=== PATIENT | female | born 1990 | race Caucasian/White ===

== ENCOUNTER 2021-11-20 14:27 | Outpatient (CLI) | payer BC, SELFPAY ==
[2021-11-20 18:13] LABS: Ferritin* 33.7 ng/mL (6.24-137.0)
== END 2021-11-20 14:28 | disposition home or self-care (01) ==
LOC: NFLDREF 14:28
PROVIDERS: Visit Provider Physician Assistant
DX: O99.350 Diseases of the nervous system complicating pregnancy, unspecified trimester (principal); G25.81 Restless legs syndrome; Z3A.16 16 weeks gestation of pregnancy
CPT/HCPCS: 82728

== ENCOUNTER 2021-12-12 12:11 | Outpatient (CLI) | payer BC, SELFPAY ==
--- NOTE | 2021-12-12 12:15 | CRLHL7_ITS ---
For Patients: As a result of the Century Cures Act, medical imaging exams and procedure reports are released immediately into your electronic medical record. You may view this report before your referring provider. If you have questions, please contact your health care provider. INDICATION: Evaluate anatomy. COMPARISON: none TECHNIQUE: Real time barrow scale imaging of the fetus was performed as well as color Doppler analysis of the umbilical vessels. FINDINGS: Sonographic imaging demonstrates a single living intrauterine gestation. Fetus demonstrates a regular cardiac rate of 148 beats per minute. Fetus has a vertex position. The placenta lies anterior. The edge of the placenta is located 7.5 cm from the internal cervical os. Circumvallate placenta is present. See image 48/53. Amniotic fluid volume appears normal. Single deepest vertical pocket: 6.8 cm. The cervix is closed and measures 4.2 cm in length. The composite ultrasound gestational age is calculated at 19 weeks 3 days with an estimated sonographic due date of 05/05/2022. The estimated weight is 290 grams which lies at the 28th %. The following biometric measurements were obtained: Biparietal diameter: 4.6 cm/19 weeks 5 days 52nd% Head circumference: 16.6 cm/19 weeks 2 days 24th% Abdominal circumference: 14.6 cm/19 week 6 days 52nd% Femur length: 2.9 cm/18 weeks 5 days 13th% The HC/AC ratio measures: 1.14 range (1.08-1.26) On anatomic survey, there is a normal appearance of the cerebral ventricles, cavum septi pellucidi, cisterna magna and cerebellum. The nose, lips, and facial profile appear normal. The cervical, thoracic and lumbar spine are well visualized and appear normal. There is a normal four-chamber heart view and the left and right ventricular outflow tracts appear normal. The diaphragm and stomach appear normal. The kidneys and bladder also appear normal. There is a normal three-vessel cord and cord insertion site. The four extremities appear normal. IMPRESSION: Concordance of clinical and sonographic dating. No intrinsic abnormalities noted on anatomic survey. Circumvallate placenta. Dictated by Andrey Nobles MD @ 12/13/2021 10:23:12 AM (Electronically Signed)
== END 2021-12-12 12:12 | disposition home or self-care (01) ==
PROVIDERS: PCP Physician Assistant; Visit Provider Physician Assistant
DX: Z34.92 Encounter for supervision of normal pregnancy, unspecified, second trimester (principal); Z3A.19 19 weeks gestation of pregnancy
CPT/HCPCS: 76805

== ENCOUNTER 2022-02-06 16:33 | Outpatient (CLI) | payer BC, SELFPAY ==
[2022-02-09 00:58] LABS: Rapid Plasma Reagin (RPR) Non Reactive (Non Reactive)
== END 2022-02-06 16:34 | disposition home or self-care (01) ==
PROVIDERS: PCP Physician Assistant; Visit Provider Obstetrics & Gynecology
DX: Z34.90 Encounter for supervision of normal pregnancy, unspecified, unspecified trimester (principal)
CPT/HCPCS: 86592

== ENCOUNTER 2022-03-07 13:58 | Outpatient (CLI) | payer BC, SELFPAY ==
--- NOTE | 2022-03-07 14:00 | CRLHL7_ITS ---
For Patients: As a result of the Century Cures Act, medical imaging exams and procedure reports are released immediately into your electronic medical record. You may view this report before your referring provider. If you have questions, please contact your health care provider. INDICATION: Third trimester scan, evaluate growth. COMPARISON: 12/12/2021 TECHNIQUE: Real time barrow scale imaging of the fetus was performed. FINDINGS: Sonographic imaging demonstrates a single living intrauterine gestation. Fetus demonstrates a regular cardiac rate of 127 beats per minute. Fetus has a vertex position. The placenta lies anteriorly. Amniotic fluid volume appears normal and there is a single deepest vertical pocket: 4.6 cm. The estimated weight is 1655gm which lies at the 14th %. On the prior OB ultrasound exam dated 12/12/2021 the estimated weight was at the 28th%. BPD 15th percentile. HC 17th percentile. AC 37th percentile. FL less than 3rd percentile. The HC/AC ratio measures 1.06 range (0.96-1.17). IMPRESSION: Sonographic gestational age 31 weeks 0 days and sonographic due date 05/09/2022. Sonographic age is 6 days behind the clinical age. Estimated weight 14th percentile. Abdominal circumference 37th percentile. Placenta is anterior without previa. Femur length less than 3rd percentile. Dictated by Andrey Nobles MD @ 03/07/2022 3:04:05 PM (Electronically Signed)
== END 2022-03-07 13:59 | disposition home or self-care (01) ==
LOC: US 13:58
PROVIDERS: PCP Physician Assistant; Visit Provider Advanced Practice Midwife
DX: O43.119 Circumvallate placenta, unspecified trimester (principal); Z3A.31 31 weeks gestation of pregnancy
CPT/HCPCS: 76816

== ENCOUNTER 2022-04-04 12:59 | Outpatient (CLI) | payer BC, SELFPAY ==
--- NOTE | 2022-04-04 13:00 | CRLHL7_ITS ---
For Patients: As a result of the Cures Act, medical imaging exams and procedure reports are released immediately into your electronic medical record. You may view this report before your referring provider. If you have questions, please contact your health care provider. INDICATION: f/u growth and circumvallate placenta COMPARISON: 03.07.22 TECHNIQUE: Real time barrow scale imaging of the fetus was performed. FINDINGS: Sonographic imaging demonstrates a single living intrauterine gestation. Fetus demonstrates a regular cardiac rate of 143 beats per minute. Fetus has a vertex position. The placenta lies anteriorly without evidence of circumvallate placenta on today`s study. Amniotic fluid volume appears normal and there is a single deepest vertical pocket: 5.0 cm. The estimated weight is 2377gm which lies at the 13th %. On the prior OB ultrasound exam dated 03/07/2022 the estimated weight was at the 14th%. BPD 16th percentile. HC 22nd percentile. AC 27th percentile. FL less than 3rd percentile. The HC/AC ratio measures 1.04 range (0.94-1.11). IMPRESSION: Sonographic gestational age 34 weeks 3 days and sonographic due date of 05/13/2022. Sonographic age is 10 days behind the clinical age. Estimated weight 13th percentile. Abdominal circumference 27th percentile. Dictated by Andrey Nobles MD @ 04/05/2022 10:13:00 AM (Electronically Signed)
== END 2022-04-04 13:00 | disposition home or self-care (01) ==
LOC: US 13:00
PROVIDERS: PCP Physician Assistant; Visit Provider Physician Assistant
DX: O43.113 Circumvallate placenta, third trimester (principal); Z3A.34 34 weeks gestation of pregnancy
CPT/HCPCS: 76816; 87081; 87653

== ENCOUNTER 2022-05-10 14:40 | Inpatient (IN) | payer BC, SELFPAY ==
[2022-05-10] VITALS (29 sets, daily range): BP systolic 89–135; BP diastolic 50–73; PULSE 60–82; RESP 16–18; TEMP 36.4–37; O2SAT 97–100; BMI 28.5
--- NOTE | 2022-05-10 15:20 | P.LDBA_ITS ---
Subjective History of Present Illness Time Seen by Provider: 15:20 Date Seen: 05/10/22 Narrative: Patient is being admitted to Labor and Delivery for IUGR and oligohydramnios . She is a 31 year old at 41.0 weeks gestation. Her full history and physical was dictated by Tracie Ramos on 04/15/22. Please see this for details. She presented today for an ultrasound for her 41 week check. The u/s notred EFW 4%, SDP 2.3 but JOSH 4.7. BPP was 8/8. She states she has been having ctx since yesterday. They occurred all day yesterday, becoming more intense around 6pm. She was able to get some sleep, but the ctx have continued into today. . ITA: 05/08/21 by LMP c/w 1st trimester USN Spouse: Darren Eagle. Daughter: Miguel Miles. Baby: Girl! H&P completed 04/15/22 by Tracie Ramirez SNM with Fatuma Ramos CNM 1. Transfer OB at 16 weeks 4 days 2. H/o recurrent UTIs 3. Restless legs syndrome * Ferritin: 33.7, per up-to-date, recommendation is to supplement if ferritin is less than 75 * Ferrous sulfate 325 4. Circumvallate placenta * USN for EFW at 32 weeks (scheduled) * Very anxious about baby's w/ circumvallate placenta having IUGR, delivery and/or and [facility] not having an ICU * Will tx care to a tertiary care center if evidence of growth restriction at her 32 week USN. * EFW at 20wk FAS: 28% * EFW at 32 weeks: 14%. BPD 15%, HC 17%, AC 37%, FL <3%. SDP 4.6 cm * EFW at 36 weeks: 13%. BPD 18%, HC 23%, AC 27%, FL <3%. SDP 5.0 cm * Follow up growth ordered for 40 weeks, pt prefers to schedule May 06 5. Measuring small for dates - growth ordered Flu shot:Declined 12/12/2021 Covid vaccine: not vaccinated. Discussed recommendations and risks at transfer ob appt. Tdap: declines labs 09/26/2021: O positive, negative antibody screen, h hemoglobin 13.1, platelets 204, rubella immune, RPR negative, hepatitis-B surface antigen negative, HIV negative, gonorrhea and Chlamydia negative, UC: No growth. TSH 0.453 Hep C: neg (found in transfer records 04/15) Imaging 09/26/2021: [employer]-rump length 16.6 mm. heart rate 164. ITA 05/08/2022. Consistent with LMP dating, 05/03/2022. OB - Problem Based A/P Additional Plan (1) IUGR (intrauterine growth restriction): Status: Acute (2) Oligohydramnios: Status: Acute (3) Uterine contractions: Status: Acute Plan at 41.0 weeks GBS negative Oligohydramnios IUGR Possible early labor 1. Admit to L & D for IOL, likely pitocin. Did review option to wait an hour or two to see if labor was progressing 2. Continuous monitoring 3. Canidate for analgesia of choice. Planning unmedicated 4. Desires waterbirth, unable to do so r/t IUGR 5. Dr. Nassar assuming care per pt request 6. Anticipate progress to NVD OB Exam Physical Exam Vital signs: Pulse BP 71 116/73 05/10/22 15:09 05/10/22 15:09 Narrative: VSS, afebrile General Appearance:? Calm, cooperative. ?No acute distress. ? Psychiatric Exam: Alert and oriented, appropriate affect Lungs: CTA Cardiac: RRR Abdomen: Gravid Ctx: ?Q 5-7 min apart. ?Mild -?Moderate ? FHTs: ?Baseline: 115 ? ? Variability: min - mod ? Accels: present ? ?Decels: ?none SVE: /-2 Membranes: Intact ?
[2022-05-10 18:15] LABS: SARS PCR* Negative SARS-CoV-2 (Negative)
--- NOTE | 2022-05-10 19:13 | PM.OBPNL ---
Subjective Time Seen by Provider: 18:00 Date Seen: 05/10/22 Narrative: Shauna has been johnny spontaneously since admission. She is ambulating. Contractions are feeling stronger. Objective Vital Signs: Last Vital Signs Temp 98.4 F 05/10/22 15:00 Pulse 71 05/10/22 15:09 Resp 16 05/10/22 15:00 BP 116/73 05/10/22 15:09 Pulse Ox 97 05/10/22 16:25 Comments: tracing: BAseline 110 / accels present / no decels / moderate variability. Pelvic Exam Dilation (cm): 4 Effacement (%): 90 Station: +2 Comments: cervix anterior and soft. *Very* low. Contractions Contraction pattern: Regular Assessment Assessment: prodromal labor Station: +2 Status: Category l Tracing Comments: Reasurring status. Labor Progress: Latent labor. Progress since last exam in dilation and station. Plan Plan: Repeat exam in two hours. I favor AROM or pitocin if no change at that time.
[2022-05-10] MEDS: OXYTOCIN 30 unit/500 ML in NS 30 UNIT/500 ML BAG IVPB (20:35)
[2022-05-10 20:41] LABS: Basophils Percent Auto 0.1 % (0.0-3.0); Eosinophils Percent Auto 0.3 % (0.0-7.0); Hematocrit 36.5 % (33.0-51.0); Hemoglobin* 12.5 gm/dL (12.0-16.0); Immature Granulocytes Pct Auto 0.3 %; Lymphocytes Percent Auto 11.7 % (20-44); Mean Corpuscular HGB Conc 34 gm/dL (32-36); Mean Corpuscular Hemoglobin 32 pg (26-34); Mean Corpuscular Volume 93 fL (80-100); Monocytes Percent Auto 6.6 % (0.0-11.0); Platelet Count* 155 K/uL (140-440); RDW Coefficient of Variation % 13.6 % (11.5-15.5); Red Blood Count 3.91 m/uL (4.00-5.20); White Blood Count* 11.45 K/uL (4.50-11.00)
[2022-05-10 20:50] LABS: Slide Review Reflex No
[2022-05-10] MEDS: ONDANSETRON 2 MG/ML inj 4 MG IV (20:58)
[2022-05-10] MEDS: LACTATED RINGERS 1000 ML 1,000 ML 925 ML IV (21:00)
[2022-05-10] MEDS: ROPIVACAINE 0.2% 100 ml 100 ML 10 MG EPIDURAL (21:39)
[2022-05-10] MEDS: LIDOCAINE 2% (PF) 5 ML VIAL EPIDURAL (21:39)
--- NOTE | 2022-05-10 21:42 | P.ANBPRC_ITS ---
[facility] Medical History (Updated 05/10/22 @ 17:11 by Carol Ma CNM) History of recurrent UTIs Surgical History H/O wisdom tooth extraction Family History Maternal Grandfather Breast cancer Mother Thyroid disease Osteoporosis Social History Narrative: . 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 Smoking Status: Never smoker Little interest or pleasure in doing things: not at all Feeling down, depressed, or hopeless: not at all Meds Home Medications and Allergies Home Medications Medication Instructions Recorded Confirmed Type docosahexaenoic acid 200 mg 200 mg PO DAILY 11/20/21 05/10/22 History capsule ( DHA) magnesium 30 mg tablet 225 mg PO QDAY 11/20/21 05/10/22 History cholecalciferol (vitamin D3) 25 25 mcg PO QDAY 04/15/22 05/10/22 History mcg (1,000 unit) capsule Allergies Allergy/AdvReac Type Severity Reaction Status Date / Time No Known Drug Allergies Allergy Verified 05/06/22 13:02 Results Labs Labs: Laboratory Results - last 24 hr 05/10/22 05/10/22 16:53 20:32 WBC 11.45 H RBC 3.91 L Hgb 12.5 Hct 36.5 MCV 93 MCH 32 MCHC 34 RDW Coeff of Jennie 13.6 Plt Count 155 Neut % (Auto) 81.0 H Lymph % (Auto) 11.7 L [place] % (Auto) 6.6 Eos % (Auto) 0.3 Baso % (Auto) 0.1 Neut # (Auto) 9.30 H Lymph # (Auto) 1.30 [place] # (Auto) 0.80 Eos # (Auto) 0.00 Baso # (Auto) 0.00 SARS-CoV-2 (PCR) Negative SARS-CoV-2 Vital Signs Vital Signs: Last Vital Signs Temp 97.5 F L 05/10/22 19:44 Pulse 60 05/10/22 21:42 Resp 16 05/10/22 19:44 BP 89/52 L 05/10/22 21:42 Pulse Ox 100 05/10/22 21:31 Weight: 70.715 kg Height: 157.48 cm Anesthesia Procedures Epidural Insertion Patient Location: OB Start Time: 21:15 Stop Time: 21:45 Start Date: 05/10/22 Stop Date: 05/10/22 Reason for Block: primary anesthetic Patient Position: sitting Performed By: Jarod Gabriel Preanesthetic Checklist: IV checked, risks and benefits discussed, surgical consent, monitors and equipment checked, pre-op evaluation, timeout performed and anesthesia consent Prep: chlorhexidine gluconate Monitoring: blood pressure monitoring, cardiac exercise physiologist, continuous pulse oxim etry and heart rate Approach: midline Vertebral Space: lumbar (1-5) Epidural Technique: KIMBERLY saline Needle Type: Tuohy needle Injection Technique: continuous catheter (catheter) Needle gauge: 17 Needle Length (cm): 10 cm Needle Insertion Depth (cm): 5 Catheter Gauge: 19 Catheter Type: multi-orifice Catheter at skin depth (cm): 10 Test Dose Result: negative and lidocaine 1.5% with epinephrine 1 to 200,000
[2022-05-10] MEDS: LACTATED RINGERS 1000 ML 1,000 ML 125 ML IV (22:06)
[2022-05-11] VITALS (13 sets, daily range): BP systolic 94–128; BP diastolic 51–71; PULSE 59–97; RESP 16; TEMP 36.4–37.1; O2SAT 94–97
--- NOTE | 2022-05-11 00:10 | W.PM.VAGDEL1 ---
Procedure Delivery date: 05/10/22 Procedure Done: [employer] Procedure Details: The patient is a 31 year-old G 2 P 1-0-0-1 woman admitted on 05/10/2022 at 41 Weeks, 0 Days gestation for induction of labor for suspected intrauterine growth restriction and oligohydramnios.? Cervical exam on admission was 3 cm/90 % effaced/-2 station with membranes intact in vertex presentation.? Contractions were roughly every 5 minutes.? heart rate demonstrated baseline 110 bpm with moderate variability, positive accelerations, now decelerations; a category 1 tracing.? Labor onset:? 3:00 p.m. She had Pitocin for augmentation of labor. While she was johnny regularly, contractions became less frequent, every 6 minute at time of initiation of Pitocin. ? Labor Analgesia:? Epidural ? SROM occurred at 11:15 p.m. with clear fluid. ? Complete:? 11:37 p.m. ? Pushing:? 11:40 p.m. ? heart tones during second stage were reassuring. ? At 11:48 p.m. a viable female delivered in vertex OA presentation over small second-degree perineal laceration via spontaneous vaginal delivery.? was placed on maternal abdomen.? Cord was clamped and cut after a delay of greater than 60 seconds. Nose and mouth were bulb suctioned.? Infant weight pending.? 8 at 1 minute and 9 at 5 minutes.? Shoulder dystocia: No.? Nuchal cord: Now. ? Placenta delivered spontaneously and complete at 11:55 p.m. with a 3 vessel cord. ? Mother and infant were stable after delivery. ? Lacerations:? Small second-degree perineal laceration, repaired with 3 interrupted sutures of 3-0 Vicryl. ? Blood loss: 200 mL. Blood loss measurement type: EBL ? Sponge and needles counts are correct.
[2022-05-11] MEDS: IBUPROFEN 600 MG TABLET PO ×4 (04:03→23:55)
--- NOTE | 2022-05-11 10:44 | PM.OBPNVD1 ---
OB - PN:Subj Subjective Time Seen by Provider: 10:44 Date Seen: 05/11/22 Interval history: Overnight patient had complains of fatigue. Her pain is well controlled on oral pain medications. She is tolerating a regular diet. She is ambulating without difficulty. Lochia is scant. She is urinating without lopez. Patient denies chest pain, SOB, n/v, headache, RUQ pain, vision changes, dizziness. She state that overall her delivery was fine, just endorses intense pain at the end and wondered if her epidural was working at that point. I discussed with her that unfortunately, having pain while even with an epidural is normal. Her delivery was uncomplicated. OB - PN: Obj Exam Physical Exam: Vital signs: Temp Pulse Resp BP Pulse Ox O2 Del Method 97.9 F 63 16 98/56 L 96 05/11/22 09:20 05/11/22 09:20 05/11/22 09:20 05/11/22 09:20 05/11/22 09:20 05/11/22 09:20 Narrative: Physical exam: General: No acute distress Psych: Alert and oriented x3, full affect HEENT: Normocephalic, atraumatic Heart: Regular rate and rhythm, no murmur rub or gallop Lungs: Clear to auscultation bilaterally Abdomen: Soft, no tenderness, rebound, or guarding Skin: No lesions or rashes Lower extremities: No edema or erythema Pelvic exam: Light lochia on pad OB - PN: Obj Data Labs Labs: Laboratory Results - last 24 hr 05/10/22 05/10/22 05/10/22 16:53 20:32 20:32 WBC 11.45 H RBC 3.91 L Hgb 12.5 Hct 36.5 MCV 93 MCH 32 MCHC 34 RDW Coeff of Jennie 13.6 Plt Count 155 Neut % (Auto) 81.0 H Lymph % (Auto) 11.7 L Reagan % (Auto) 6.6 Eos % (Auto) 0.3 Baso % (Auto) 0.1 Neut # (Auto) 9.30 H Lymph # (Auto) 1.30 Reagan # (Auto) 0.80 Eos # (Auto) 0.00 Baso # (Auto) 0.00 SARS-CoV-2 (PCR) Negative SARS-CoV-2 Blood Type O Positive Antibody Screen NEGATIVE OB - PN: A/P Vaginal Delivery Assessment and Plan (1) IUGR (intrauterine growth restriction): Status: Inactive (2) Oligohydramnios: Status: Inactive (3) Uterine contractions: Status: Resolved Plan Comments: Postoperative Review: - Admitted for: IOL due to FGR and oligohydramnios at 41 weeks - Laceration: 2nd degree - Estimated blood loss: 200 mL - Complications: none - Urine output: Voiding freely Postoperative care: - Diet: Advance as tolerated - Fluid: Encourage oral intake - Activity: Encourage ambulation - Pain: Tylenol and Ibuprofen Discharge Planning - Follow Up: follow-up in 2 and 6 weeks in clinic Baby's Status - Fetus: 8, 9 - Weight: 7lb 5.11 oz - Location: Bedside Dispo: Patient is PPD#1.
[2022-05-12 07:23] LABS: Hemoglobin* 11.4 gm/dL (12.0-16.0)
[2022-05-12 07:26] VITALS: BP 96/51; PULSE 66; RESP 16; TEMP 36.5; O2SAT 97
[2022-05-12] MEDS: IBUPROFEN 600 MG TABLET PO (07:46)
--- NOTE | 2022-05-12 09:32 | P.DS_ITS ---
DS: Providers Provider Time Seen by Provider: 09:32 Date Seen: 05/12/22 Date of admission: 05/10/22 14:40 Primary care physician: Sara South PA-C Admitting Clinician: Nancy Nassar MD Attending Physician on discharge: Nancy Nassar MD Date of Discharge: 05/12/22 DS: Diagnosis Discharge Diagnosis (1) Normal spontaneous vaginal delivery: Status: Acute Exam Narrative: Exam Narrative: Physical exam: General: No acute distress Psych: Alert and oriented x3, full affect HEENT: Normocephalic, atraumatic Heart: Regular rate and rhythm, no murmur rub or gallop Lungs: Clear to auscultation bilaterally Abdomen: Normoactive bowel sounds. Uterus firm 3-4 cm below umbilicus, soft, no tenderness, rebound, or guarding, no masses Lower extremities: No edema or erythema Pelvic exam: Deferred. Patient report scant lochia Const: Vital Signs, click to edit/add: Vital Signs - 24 hr 05/11/22 11:49 05/11/22 16:15 05/11/22 20:19 Temperature 97.9 F 97.7 F 97.5 F L Pulse Rate [Pulse Oximeter] 84 85 66 Respiratory Rate 16 16 16 Blood Pressure [Ri ght Arm] 104/68 106/70 128/71 Pulse Oximetry 97 96 Oxygen Delivery Me thod Room Air Room Air Room Air 05/11/22 23:45 05/12/22 07:26 Temperature 98.3 F 97.7 F Pulse Rate [Pulse Oximeter] 59 L 66 Respiratory Rate 16 16 Blood Pressure [Ri ght Arm] 97/60 96/51 L Pulse Oximetry 94 97 Oxygen Delivery Me thod Room Air Room Air OB - DS: Summary Hospital Course Hospital Course: The patient is a 31 year old G 2 P 1001 at 41 weeks gestation that was admitted to the Center on 05/10/22 for induction of labor due to suspected growth restriction and oligohydramnios. She had an uncomplicated vaginal delivery. She delivered a viable female infant. She is breast feeding. the patient has done well. She desires discharge TASHIA. Discussed patient's baseline low blood pressure. She is asymptomatic and her BP is generally on the lower side at baseline. Her hgb is 11.4. Patient denies fever, chills, chest pain, SOB, n/v, headache, vision changes, RUQ pain, or dizziness. Stable and appropriate for discharge. Time spent discussing smoking cessation with patient: 3 to 10 minutes Infant Gender: Female Time Spent with Patient Time attestation: Total time spent providing and/or coordinating discharge services: Discharge Plan Discharge Disposition: Home, Self-Care Date of Admission: 05/10/22 14:40 Attending Provider on Discharge: Mayela Burgess MD Primary Care Provider: Sara South Condition: Stable Anticipated Discharge Date/Time: 05/12/22 09:29 Discharge Medications: New acetaminophen 500 mg Tablet 1,000 mg PO Q6H PRN30 Days Qty: 30 0RF docusate sodium 100 mg Capsule 100 mg PO DAILY 30 Days Qty: 30 0RF ibuprofen 600 mg Tablet 600 mg PO Q6H PRN30 Days Qty: 30 0RF simethicone 80 mg Tablet,Chewable 80 - 160 mg PO Q4H PRN (Reason: gas) 30 Days Qty: 30 0RF Lanolin (HPA) 100 % Cream 1 applic topical Q1H PRNQty: 10 0RF Continued DHA 200 mg capsule 200 mg PO DAILY cholecalciferol (vitamin D3) 25 mcg (1,000 unit) capsule 25 mcg PO QDAY ferrous sulfate 325 mg (65 mg iron) tablet 325 mg PO QDAY Qty: 90 3RF Discontinued magnesium 30 mg tablet 225 mg PO QDAY Discharge Orders: Discharge Order (Routine); Ordered 05/12/22 Ordered By: Mayela Burgess Patient Education: Caring for Your Baby (DC), Vaginal Delivery (DC) Follow Up Appointments: Sara South PA-C [Primary Care Provider] - Forms: Posterous Info Instructions
== END 2022-05-12 13:40 | disposition home or self-care (01) | DRG 560 ==
LOC: OB OUT 05-11 08:03 → OB 05-11 08:03
PROVIDERS: Admitting Provider Obstetrics & Gynecology; PCP Physician Assistant; Visit Provider Obstetrics & Gynecology
DX: O41.03X0 Oligohydramnios, third trimester, not applicable or unspecified (principal); O36.5930 Maternal care for other known or suspected poor fetal growth, third trimester, not applicable or unspecified; O70.1 Second degree perineal laceration during delivery; G25.81 Restless legs syndrome; Z3A.41 41 weeks gestation of pregnancy; Z37.0 Single live birth
CPT/HCPCS: 01967; 36415; 76816; 76819; 76820; 85018; 85025; 86850; 86900; 86901; 87635; 88307; 99213; A9270; J2370; J2405; J2795; J7120

== ENCOUNTER 2022-05-17 14:36 | Outpatient (CLI) | payer BC, SELFPAY ==
--- NOTE | 2022-06-07 13:56 | W.PM.LAC.MC ---
Consult Note - Mom Date of Visit Date of visit: 05/17/22 hearing consultant: Mago Cardona Visit Code: Visit Patient's Information Phone number: [phone] : 2 Para: 2 Allergies No Known Drug Allergies Allergy (Verified 05/06/22 13:02) Mother's Medical History: Medical History (Updated 05/11/22 @ 00:07 by Nancy Nassar MD) IUGR (intrauterine growth restriction) Oligohydramnios ?O41.00X0 - Oligohydramnios, unspecified trimester, not applicable or unspecified (ICD-10) Delivery Information Delivery type: Vaginal (oligohydramnios) Weeks Gestation: 41.0 Gestational Age: AGA (IUGR) Weight: 3.32 kg Discharge Weight: 3.246 kg Baby's Information Baby's Age at Visit: 1 week Baby's Provider or Clinic: Dr. Parker Jaundice: No Reason for Consult Reason for Consult: painful latch Past Experience Past Experience: Yes (nursed her first baby x 2 years) Current Frequency of Day Feedings: ever 2 - 3 hours around the clock Both Breasts: Yes Suck: strong Latch: wide Length of Time: 10 - 15 minues Pumping Pumping: No Supplementing EMB Supplement: No Formula Supplement: No Baby Elimination Number of Wet Diapers a Day: almost every feeding Number of BM a Day: almost every feeding; yellow and seedy Breast/Nipple Condition Breast Information: WNL Engorgement: Yes (resolving) Maternal Nipple Condition - Left: Common Nipple Maternal Nipple Condition - Right: Common Nipple Sore Nipples: No Onsite Pre-Feed weight: 3.35 kg Post-Feed weight: 3.436 kg Milk Transferred (mL): 86 Pre-Nursing Left Nipple: Within Normal Limits Pre-Nursing Right Nipple: Within Normal Limits Post-Nursing Left Nipple: Within Normal Limits Post-Nursing Right Nipple: Within Normal Limits Assessments/Interventions Assessments/Interventions: Met with mom and this now one week old ex- term AGA/IUGR baby for consult.? Mom reports her milk came in earlier this week and caused a lot of engorgement but it seems to be slowly resolving.? She has a hx of plugged ducts and mastitis in her left breast with her first baby however, and is worried what she's feeling might be plugged ducts.? States baby is nursing every 2 - 3 hours (mom wakes her to feed).? She offers both sides and nursing sessions last 10 - 15 minutes/side.? She hasn't started pumping and hasn't offered baby a bottle. Breasts WNL- symmetrical with rounded lower quadrants, intramammary distance is < 1.5 inches.? Nipples are everted and don't flatten or retract on compression; no damage noted.? Plugged ducts felt at the outer edge of the left breast and along the top; right breast WNL.? No s/s of mastitis.? Baby has gained 20 grams/day since 05/14 and is above BW by one oz at 1 week of life.? Mom denies any caput/cephalohematoma at delivery.? Reports baby has good ROM when turning her head and moving her extremities.? Palate is WNL and upper lip flanges easily.? Baby has a strong suck on a finger.? The tongue cups nicely around the finger, easily extends over the gum line, there is some canoeing when moving laterally.? Lower frenulum is WNL.? Mom wanted to try some different positions to see if they were more comfortable so she was set up in the football hold on the right and the laid back and side lying on the left.? All positions were comfortable; she and baby did great.? After about a 40 minute session baby transferred 86 ml.? She was still uncomfortable on the left side so we tried her pump and once she pumped about .5 oz she felt better. Plan: 1. Continue to nurse ALD, offer both sides at each feeding and try the different positions.? OK to let baby sleep up to 4 hours at night, this can be re-evaluated at her 2 week [facility]. 2. Express/pump to comfort if needed after nursing.? Reviewed lymph drainage massage and breast gymnastics to help with plugged ducts.? Could also start sunflower lecithin and handouts given. 3. No medical need to supplement so suggested waiting until baby was about four weeks to introduce a bottle.? 4. Reviewed s/s of mastitis, home care, and when to call her doctor. 5. Mom declined any f/u but may come to [facility].? Will fax note to PCP. Meds Home Medications and Allergies Home Medications Medication Instructions Recorded Confirmed Type docosahexaenoic acid 200 mg 200 mg PO DAILY 11/20/21 05/10/22 History capsule ( DHA) cholecalciferol (vitamin D3) 25 25 mcg PO QDAY 04/15/22 05/10/22 History mcg (1,000 unit) capsule Allergies Allergy/AdvReac Type Severity Reaction Status Date / Time No Known Drug Allergies Allergy Verified 05/06/22 13:02
== END 2022-05-17 14:37 | disposition home or self-care (01) ==
PROVIDERS: PCP Physician Assistant; Visit Provider Physician Assistant
DX: Z39.1 Encounter for care and examination of lactating mother (principal)
CPT/HCPCS: 99211

== ENCOUNTER 2022-06-18 14:38 | Outpatient (CLI) | payer BC, SELFPAY ==
--- NOTE | 2022-06-18 14:00 | CRLHL7_ITS ---
For Patients: As a result of the Century Cures Act, medical imaging exams and procedure reports are released immediately into your electronic medical record. You may view this report before your referring provider. If you have questions, please contact your health care provider. INDICATION: Post epidural swelling. TECHNIQUE: Directed soft tissue ultrasound of the midline back. FINDINGS: Within the midline back there is a 1.0 x 0.4 x 0.8 cm well-defined hypoechoic and mixed echogenic lesion likely a small hematoma in the subcutaneous fat anterior to the musculature. This is not vascular in nature and is not a drainable fluid collection. IMPRESSION: Well-circumscribed 1 cm mixed echogenic and hypoechoic nonvascular lesion within the subcutaneous soft tissues of the midline back likely a small hematoma. Dictated by Cheikh Arce MD @ 06/18/2022 6:51:55 PM (Electronically Signed)
== END 2022-06-18 14:39 | disposition home or self-care (01) ==
LOC: US 14:38
PROVIDERS: PCP Physician Assistant; Visit Provider Obstetrics & Gynecology
DX: T14.8XXA Other injury of unspecified body region, initial encounter (principal)
CPT/HCPCS: 76604

== ENCOUNTER 2022-12-10 10:46 | Outpatient (CLI) | payer BC, MEDICAID, SELFPAY ==
--- NOTE | 2022-12-10 11:00 | CRLHL7_ITS ---
For Patients: As a result of the Century Cures Act, medical imaging exams and procedure reports are released immediately into your electronic medical record. You may view this report before your referring provider. If you have questions, please contact your health care provider. INDICATION: Hematoma. Assess proximity to spine. TECHNIQUE: Noncontrast CT images acquired through the lumbar spine. COMPARISON: None. FINDINGS: Small rounded hypoattenuation within the superficial subcutaneous soft tissues slightly right of midline at the L1 level adjacently inferoposterior to the T12 spinous process measuring 11 x 10 mm (TR/AP, series 3, image 34). The lumbar lordosis is preserved. Vertebral body heights are maintained. No acute fracture or spondylolisthesis. Shallow posterior disc bulging L4-5 and L5-S1. No spinal canal or neural foraminal narrowing. IMPRESSION: 1. Small rounded hypoattenuation within the superficial subcutaneous tissues slightly right of midline at the L1 level adjacently inferoposterior to the T12 spinous process. This finding is incompletely characterized on this noncontrast exam, though may represent a small fluid collection. 2. Minimal lumbar spondylosis. Please note that all CT scans at this facility use dose modulation, iterative reconstruction, and/or weight-based dosing when appropriate to reduce radiation dose to as low as reasonably achievable. Dictated by Alexander Velázquez MD @ 12/10/2022 2:15:10 PM (Electronically Signed)
== END 2022-12-10 10:47 | disposition home or self-care (01) ==
PROVIDERS: Visit Provider Registered Nurse
DX: T14.8XXA Other injury of unspecified body region, initial encounter (principal); M47.896 Other spondylosis, lumbar region
CPT/HCPCS: 72131

== ENCOUNTER 2023-01-21 12:47 | Outpatient (CLI) | payer BC, MEDICAID, SELFPAY ==
--- NOTE | 2023-01-21 13:00 | CRLHL7_ITS ---
For Patients: As a result of the Century Cures Act, medical imaging exams and procedure reports are released immediately into your electronic medical record. You may view this report before your referring provider. If you have questions, please contact your health care provider. INDICATION: Low back pain. TECHNIQUE: Multiplanar multisequence noncontrast MR images acquired through the lumbar spine. COMPARISON: CT lumbar spine 12/10/2022. FINDINGS: The lumbar lordosis is preserved. Vertebral heights maintained. No acute fracture or spondylolisthesis. No T1 hypointense marrow replacing lesions or marrow edema. Normal conus terminates at L1-2. No spinal canal or neural foraminal narrowing. IMPRESSION: No spinal canal narrowing, nerve root impingement, or marrow edema. Dictated by Alexander Velázquez MD @ 01/21/2023 2:51:10 PM (Electronically Signed)
== END 2023-01-21 12:48 | disposition home or self-care (01) ==
LOC: MRI 12:48
PROVIDERS: Visit Provider Registered Nurse
DX: M54.50 Low back pain, unspecified (principal); T14.8XXA Other injury of unspecified body region, initial encounter
CPT/HCPCS: 72148